=== PATIENT | male | born 1955 | race Caucasian/White ===

== ENCOUNTER 2018-12-02 09:43 | Emergency (ER) | payer OTHER ==
[~2018-12-02] VITALS: Ht 172.7 cm; Wt 78.0 kg
[2018-12-02 13:16] VITALS: BP 111/70
== END 2018-12-02 16:33 | disposition home or self-care (01) ==
LOC: ED 14:27
DX: R11.2 Nausea with vomiting, unspecified (principal); R19.7 Diarrhea, unspecified; R55 Syncope and collapse; R42 Dizziness and giddiness; I10 Essential (primary) hypertension; E78.00 Pure hypercholesterolemia, unspecified
CPT/HCPCS: 36415; 70450; 71045; 80048; 80076; 82040; 83690; 84484; 85025; 93005; 96361; 96372; 96374; 96375; 99284; J2405; J2550; J3490; J7030